=== PATIENT | male | born 1965 | race Hispanic/Latino ===

== ENCOUNTER 2017-10-22 00:47 | Emergency (ER) | payer SELFPAY ==
[2017-10-22 01:00] VITALS: O2SAT 97
--- NOTE | 2017-10-22 01:49 | C.PDOC ---
History Of Present Illness 52 year old male presents to the ED for evaluation of headache and lower back pain. Patient reports that while at a [employer] he slipped and fell backwards hitting the back if bis head and the lower back. Patient states that after arriving home he had 1 episode of vomiting and increased headache. Patient denies previous back issue, dizziness, weakness, numbness, blurry vision, saddle anesthesia, bowel/urinary incontinence. Time Seen by Provider: 10/22/17 01:26 Chief Complaint (Nursing): Back Pain History Per: Patient History/Exam Limitations: no limitations Onset/Duration Of Symptoms: Days Current Symptoms Are (Timing): Still Present Quality Of Discomfort: "Pain" Previous Symptoms: None Exacerbating Factor(s): Nothing Recent travel outside of the [place]: No Additional History Per: Patient Past Medical History Reviewed: Historical Data, Nursing Documentation, Vital Signs Vital Signs: Last Vital Signs Temp 97.5 F L 10/22/17 03:37 Pulse 74 10/22/17 03:37 Resp 16 10/22/17 03:37 BP 108/69 10/22/17 03:37 Pulse Ox 97 10/22/17 04:05 - Medical History PMH: HTN Denies: Chronic Kidney Disease Surgical History: No Surg Hx Family History: States: Unknown Family Hx - Social History Hx Alcohol Use: Yes Hx Substance Use: No - Immunization History Hx Tetanus Toxoid Vaccination: No Hx Influenza Vaccination: No Hx Pneumococcal Vaccination: No Review Of Systems Constitutional: Negative for: Fever, Chills Cardiovascular: Negative for: Chest Pain Respiratory: Negative for: Shortness of Breath Gastrointestinal: Negative for: Abdominal Pain Musculoskeletal: Positive for: Back Pain Neurological: Positive for: Headache, Dizziness. Negative for: Weakness, Numbness Physical Exam - Physical Exam Appears: Non-toxic, No Acute Distress Skin: Normal Color, Warm, Dry Head: Atraumatic, Normacephalic, Tenderness (occipital area) Eye(s): bilateral: Normal Inspection, PERRL, EOMI Nose: No Discharge Oral Mucosa: Moist Neck: Normal ROM, No Midline Cervical Tenderness, Supple Chest: Symmetrical Cardiovascular: Rhythm Regular, No Murmur Respiratory: Normal Breath Sounds, No Rales, No Rhonchi, No Wheezing Gastrointestinal/Abdominal: Soft, No Tenderness, No Guarding, No Rebound Back: No CVA Tenderness, Vertebral Tenderness (lumbar ) Extremity: Normal ROM, No Tenderness, No Swelling Neurological/Psych: Oriented x3, Normal Speech, Normal Cognition, Normal Motor, Normal Sensation Gait: Steady ED Course And Treatment O2 Sat by Pulse Oximetry: 97 (On RA) Pulse Ox Interpretation: Normal - CT Scan/US CT head Other Rad Studies (CT/US): Read By Radiologist, Radiology Report Reviewed CT/US Interpretation: FINDINGS: Brain: Unremarkable. No hemorrhage. No significant white matter disease. No edema. Ventricles: Unremarkable. No ventriculomegaly. Bones/joints: Unremarkable. No acute fracture. Soft tissues : Unremarkable. Sinuses: There is diffuse mucoperiosteal thickening in the ethmoid sinuses, consistent with chronic. sinusitis. Mastoid air cells: There is fluid in the mastoid air cells bilaterally. IMPRESSION: No evidence of an acute intracranial abnormality. Chronic sinusitis. CT LSpine Other Rad Studies (CT/US): Read By Radiologist, Radiology Report Reviewed CT/US Interpretation: FINDINGS: Vertebrae: There is no evidence of acute fracture. There is no evidence of malalignment or. dislocation. There are mild degenerative changes present with small anterior endplate spurs. The. facet joints are intact. Discs/spinal canal/neural foramina: No acute findings. No spinal canal stenosis. Soft tissues: Unremarkable. Other findings: The sacroiliac joints are intact. The visualized intra-abdominal structures are. unremarkable. The vasculature demonstrates diffuse mild atherosclerotic calcification. IMPRESSION: No acute fracture or dislocation. Mild degenerative changes. Progress Note: Plan: - CT head. - CT L Spine. - Motrin 600 mg po. On reassessment, patient is resting comfortably, and is in no acute distress. Concussion precautions were d/w pt who is advised to follow up with physician/ clinic in 1-2 days for further evaluation. Return precautions d/ w pt who expressed understandings of all instructions. Disposition Counseled Patient/Family Regarding: Diagnosis, Need For Followup, Rx Given - Disposition Referrals: 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 - Scribe Statement The provider has reviewed the documentation as recorded by the Scribe Ang Delgado All medical record entries made by the Jacquelynibe were at my direction and personally dictated by me. I have reviewed the chart and agree that the record accurately reflects my personal performance of the history, physical exam, medical decision making, and the department course for this patient. I have also personally directed, reviewed, and agree with the discharge instructions and disposition.
--- NOTE | 2017-10-22 02:58 | CT ---
EXAM: CT Head Without Intravenous Contrast CLINICAL HISTORY: 52 years old, male; Pain; Headache; Additional info: Headache, head injury, fall, loc TECHNIQUE: Axial computed tomography images of the head/brain without intravenous contrast. All CT scans at this facility use one or more dose reduction techniques, viz.: automated exposure control; ma/kV adjustment per patient size (including targeted exams where dose is matched to indication; i.e. head); or iterative reconstruction technique. COMPARISON: No relevant prior studies available. FINDINGS: Brain: Unremarkable. No hemorrhage. No significant white matter disease. No edema. Ventricles: Unremarkable. No ventriculomegaly. Bones/joints: Unremarkable. No acute fracture. Soft tissues: Unremarkable. Sinuses: There is diffuse mucoperiosteal thickening in the ethmoid sinuses, consistent with chronic sinusitis. Mastoid air cells: There is fluid in the mastoid air cells bilaterally. IMPRESSION: No evidence of an acute intracranial abnormality. Chronic sinusitis.
--- NOTE | 2017-10-22 03:31 | CT ---
EXAM: CT Lumbar Spine Without Intravenous Contrast CLINICAL HISTORY: 52 years old, male; Pain; Low back pain; Additional info: Pain, fall TECHNIQUE: Axial computed tomography images of the lumbar spine without intravenous contrast. All CT scans at this facility use one or more dose reduction techniques, viz.: automated exposure control; ma/kV adjustment per patient size (including targeted exams where dose is matched to indication; i.e. head); or iterative reconstruction technique. Coronal and sagittal reformatted images were created and reviewed. COMPARISON: No relevant prior studies available. FINDINGS: Vertebrae: There is no evidence of acute fracture. There is no evidence of malalignment or dislocation. There are mild degenerative changes present with small anterior endplate spurs. The facet joints are intact. Discs/spinal canal/neural foramina: No acute findings. No spinal canal stenosis. Soft tissues: Unremarkable. Other findings: The sacroiliac joints are intact. The visualized intra-abdominal structures are unremarkable. The vasculature demonstrates diffuse mild atherosclerotic calcification. IMPRESSION: No acute fracture or dislocation. Mild degenerative changes.
[2017-10-22 03:38] VITALS: BP 108/69; PULSE 74; RESP 16; TEMP 97.5
== END 2017-10-22 03:53 | disposition home or self-care (01) ==
LOC: C.ER 00:47
DX: S09.90XA Unspecified injury of head, initial encounter (principal); S30.0XXA Contusion of lower back and pelvis, initial encounter; W01.0XXA Fall on same level from slipping, tripping and stumbling without subsequent striking against object, initial encounter; Y92.89 Other specified places as the place of occurrence of the external cause